=== PATIENT | female | born 1950 | race Caucasian/White ===

== ENCOUNTER → 2017-01-12 | Outpatient (CLI) | payer MEDICARE, BC ==
[~2017-01-12] MED LIST: CELEXA 20MG20 MG/TAB PO; PRAVACHOL 40MG40 MG PO; SINGULAIR 110 MG/TAB PO
== END ==
LOC: MC.RAD 08:12
DX: Z12.31 Encounter for screening mammogram for malignant neoplasm of breast (principal)

== ENCOUNTER 2017-12-17 19:05 | Emergency (ER) | payer MEDICARE, BC ==
[~2017-12-17] VITALS: Ht 172.7 cm; Wt 79.1 kg
[2017-12-17 19:18] VITALS: TEMP 99.2
[2017-12-17] MEDS ORDERED: BLOOD PRESSURE (20:30)
[2017-12-17] MEDS ORDERED: NORCO 325 MG-51 TAB PO (21:52)
[2017-12-17 23:02] VITALS: BP 131/72; PULSE 64
== END 2017-12-17 23:02 | disposition home or self-care (01) ==
LOC: COL.ER 19:05
DX: S62.101A Fracture of unspecified carpal bone, right wrist, initial encounter for closed fracture (principal); S63.502A Unspecified sprain of left wrist, initial encounter; E78.5 Hyperlipidemia, unspecified; I10 Essential (primary) hypertension; W01.0XXA Fall on same level from slipping, tripping and stumbling without subsequent striking against object, initial encounter
CPT/HCPCS: Q4021

== ENCOUNTER → 2018-02-15 | Outpatient (CLI) | payer MEDICARE, BC ==
[~2018-02-15] MED LIST changes: +BLOOD PRESSURE; +NORCO 325 MG-51 TAB PO
== END ==
LOC: MC.RAD 13:57
DX: Z12.31 Encounter for screening mammogram for malignant neoplasm of breast (principal)

== ENCOUNTER → 2019-02-18 | Outpatient (CLI) | payer MEDICARE, BC | LOC: MC.RAD 09:57 | DX: Z12.31 Encounter for screening mammogram for malignant neoplasm of breast (principal) ==

== ENCOUNTER → 2020-04-22 | Outpatient (CLI) | payer MEDICARE, BC | LOC: MC.RAD 07:45 | DX: Z12.31 Encounter for screening mammogram for malignant neoplasm of breast (principal) ==

== ENCOUNTER → 2021-04-08 | Outpatient (CLI) | payer MEDICARE, BC ==
[~2021-04-08] VITALS: Ht 172.7 cm; Wt 82.4 kg
[~2021-04-08] MED LIST changes: +ALTACE 1.25MG1.25 MG PO; +FIBERCON PO; +OMEGA-3 1000 MG1 CAP PO; +PRALUENT P75 MG/1 ML SQ
[2021-04-08 10:25] VITALS: BP 151/74; PULSE 64; TEMP 99.3
[2021-04-08 11:20] VITALS: BP 155/88; PULSE 54
== END ==
LOC: COL.RAD 09:36
DX: E04.2 Nontoxic multinodular goiter (principal)

== ENCOUNTER → 2021-06-14 | Outpatient (CLI) | payer MEDICARE, BC | LOC: MC.RAD 08:15 | DX: Z12.31 Encounter for screening mammogram for malignant neoplasm of breast (principal) ==

== ENCOUNTER → 2022-03-15 | Outpatient (CLI) | payer MEDICARE, BC | LOC: COL.RAD 12:34 | DX: R13.10 Dysphagia, unspecified (principal) ==

== ENCOUNTER → 2022-06-15 | Outpatient (CLI) | payer MEDICARE, BC | LOC: MC.RAD 08:18 | DX: Z12.31 Encounter for screening mammogram for malignant neoplasm of breast (principal) ==